=== PATIENT | male | born 1970 | race Caucasian/White ===

== ENCOUNTER 2016-11-22 14:30 | Emergency (ER) | payer BC ==
--- NOTE | ~2016-11-22 | ER ---
PATIENT'S NAME: PETRA CAMPBELL [facility] AGE: 46 Y [address] ROOM: [place] [address] LOCATION: [facility] ADMIT DATE: 11/22/2016 ER/Outpatient Report DISCHARGE DATE: 11/22/2016 FAMILY PHYSICIAN: Lelia Mahan MD ATTENDING PHYSICIAN: Qasim Armando Time of arrival: 1430 hours. Time of evaluation: 1436 hours. CHIEF COMPLAINT: Blood in his urine. HISTORY OF PRESENT ILLNESS: The patient is a 46-year-old male who presents to the emergency department today with a chief complaint of blood in his urine. He reports it started last month. He was seen and evaluated at both [facility] and [facility]. Had two CT scans done. He reports that he noticed some blood in his urine just prior to arrival. He has had some urinary frequency and urgency. No painful urination. Denies any fevers or chills. No nausea or vomiting. No diarrhea. Does have some constipation. Last bowel movement was yesterday. 0/10 pain at this time. PAST MEDICAL HISTORY: Kidney stones. PAST SURGICAL HISTORY: None. SOCIAL HISTORY: The patient smokes 5 cigarettes per day for 25 years. Denies alcohol or illicit drug use. ALLERGIES: NO KNOWN DRUG ALLERGIES. MEDICATIONS: Please see list. PRIMARY CARE DOCTORS: Negrito. REVIEW OF SYSTEMS: All systems are reviewed by myself and are negative with the exception of those discussed in HPI and past medical history. PATIENT'S NAME: PETRA Gutierrez [facility] AGE: 46 Y [address] ROOM: [place] [address] LOCATION: [facility] ADMIT DATE: 11/22/2016 ER/Outpatient Report DISCHARGE DATE: 11/22/2016 FAMILY PHYSICIAN: Lelia Mahan MD ATTENDING PHYSICIAN: Qasim Armando PHYSICAL EXAMINATION: VITAL SIGNS: Weight 85.7 kg, blood pressure 143/94, pulse 89, respiratory rate 20, temperature 96.5, oxygen saturation 96% on room air. GENERAL: The patient is a 46-year-old male, appears stated age, in no acute distress. Well developed, well nourished. HEENT: Normocephalic, atraumatic. Pupils are equal, round, and reactive to light. Mucous membranes moist. NECK: Supple. There is no nuchal rigidity. CARDIOVASCULAR: Regular rate and rhythm. No murmurs, rubs, or gallops. LUNGS: Clear to auscultation bilaterally. No wheezes, rales, or rhonchi. ABDOMEN: Soft, nontender, and nondistended. No rebound, rigidity, or guarding. MUSCULOSKELETAL: The patient moves all 4 extremities. SKIN: Warm and dry. No rashes or lesions noted. LABORATORY DATA AND X-RAYS: Labs and x-rays are obtained. CBC is normal. CMP is normal. LFT is normal. Urinalysis shows 250 blood, full field of RBCs, no bacteria. CT scans are reviewed from 10/06/2016 at [facility]. It does show a right 3 mm kidney stone, nonobstructing, as well as a left 1 mm kidney stone. A CT scan on 10/21/2016 from [facility] was also reviewed by myself. It does show a right 2 mm nonobstructing kidney stone, a mild right hydroureter, as well as a 1 mm right proximal ureteral stone. There is also a left 1 mm nonobstructive kidney stones. IMPRESSION: 1. Hematuria. 2. History of nephrolithiasis. 3. Initial visit. EMERGENCY DEPARTMENT COURSE: The patient brought back to the examination room. Seen and evaluated by myself. Laboratory analysis and urinalysis are obtained as described above. The patient's records are obtained from outlying facility. I have discussed the results of the laboratory analysis as well as the patient's CT scans with him. I have discussed that I would like him to follow up with the urologist. He is to call for an appointment in 2 days. He is having no pain at this time. He has no evidence of infection. I have discussed return to care instructions including worsening symptoms or other concerns to return to the emergency department as soon as possible. The patient is agreeable without further questions. DISPOSITION: The patient is discharged home in good condition. PATIENT'S NAME: PETRA CAMPBELL [facility] AGE: 46 Y [address] ROOM: [place], [place] [address] LOCATION: [facility] ADMIT DATE: 11/22/2016 ER/Outpatient Report DISCHARGE DATE: 11/22/2016 FAMILY PHYSICIAN: Lelia Mahan MD ATTENDING PHYSICIAN: Qasim Armando DO EBONI WOODALL/lory /[id number] d: 11/22/16 2326 t: 11/26/16 0631, OUTPATIENT REPORT
[2016-11-22 14:56] LABS: BILIRUBIN URINE NEGATIVE (NEGATIVE); BLOOD URINE 250 /UL (NEGATIVE); GLUCOSE URINE NEGATIVE (NEGATIVE); KETONE URINE NEGATIVE (NEGATIVE); LEUKOCYTES URINE 25 /UL (NEGATIVE); NITRITE URINE NEGATIVE (NEGATIVE); PROTEIN URINE 30 mg/dL (NEGATIVE); SPEC GRAVITY URINE 1.015 (1.003-1.035); UROBILINOGEN URINE NORMAL (NORMAL)
[2016-11-22 15:07] LABS: COLOR URINE YELLOW (YELLOW); TURBIDITY URINE 3+ (CLEAR)
[2016-11-22 15:08] LABS: BASOPHIL % 0.2 %; EOSINOPHIL # 0.1 K/uL (0.0-0.5); EOSINOPHIL % 0.9 %; HEMATOCRIT 45.5 % (37.0-53.0); HEMOGLOBIN 15.4 g/dL (12.0-17.0); IMMATURE GRANULOCYTE % 0.4 %; LYMPHOCYTE # 2.7 K/uL (0.8-4.0); LYMPHOCYTE % 25.6 %; MCH 31.8 pg (27.0-34.0); MCHC 33.8 gm/dL (32.0-36.5); MCV 93.8 fl (83.0-98.0); MONOCYTE # 0.7 K/uL (0.0-1.0); MPV 9.1 fl (9.4-12.4); NEUTROPHIL % 65.9 %; NRBC % 0 /100WBC (0-0.00); PLATELET COUNT 280 K/uL (150-450); RBC 4.85 M/uL (4.00-6.00); RDW-CV 12.3 % (11.9-14.6); WBC 10.6 K/uL (4.0-11.0)
[2016-11-22 15:09] LABS: BACTERIA URINE NEGATIVE (NEGATIVE); EPITHELIAL URINE 0-2 #/HPF (NEGATIVE); MUCUS URINE 1+ (NEGATIVE); RBC URINE FULL FIELD #/HPF (NEGATIVE); WBC URINE 0-2 #/HPF (NEGATIVE)
[2016-11-22 15:23] LABS: ALBUMIN 3.9 gm/dL (3.5-5.0); ALK PHOS 44 IU/L (33-138); ALT 29 IU/L (12-78); ANION GAP 10.3 (10.0-19.0); AST 19 IU/L (10-40); BLOOD UREA NITROGEN 11 mg/dL (6-24); CHLORIDE 109 mMol/L (96-110); CO2 26 mMol/L (22-32); CREATININE 1.2 mg/dL (0.6-1.3); ESTIMATED GFR (MDRD EQUATION) > 60; POTASSIUM 4.3 mMol/L (3.7-5.1); SODIUM 141 mMol/L (135-145); TOTAL BILIRUBIN 0.3 mg/dL (0.0-1.5); TOTAL PROTEIN 7.6 g/dL (6.0-8.4)
== END 2016-11-22 15:38 | disposition disaster alternative care site (69) ==
LOC: GMED 14:30
PROVIDERS: Emergency Medicine
DX: R31.9 Hematuria, unspecified (principal); F17.210 Nicotine dependence, cigarettes, uncomplicated; Z87.442 Personal history of urinary calculi

== ENCOUNTER → 2016-12-09 | Outpatient (CLI) | payer BC | END | disposition disaster alternative care site (69) | LOC: GRAD 09:46 | DX: N20.0 Calculus of kidney (principal) ==